=== PATIENT | female | born 1995 | race Two or more races ===

== ENCOUNTER → 2025-05-03 | Outpatient (CLI) | payer MEDICAID, SELFPAY ==
--- NOTE | 2025-05-03 | XR_ITS ---
Examination: Lumbar spine, 5 views Technique: Lumbar spine AP, lateral, coned lateral lower lumbar spine, bilateral obliques 5 views Exam date and time: May 03, 2025 1207 hours INDICATIONS: Low back pain one year. FINDINGS: Thoracolumbar levoscoliosis 10 degrees Mild osteopenia. Mild diffuse facet arthropathy. No lumbar fracture. Moderate disc narrowing L5-S1 No spondylolisthesis IMPRESSION: Moderate disc narrowing L5-S1
--- NOTE | 2025-05-03 | XR_ITS ---
Examination: Thoracic spine 3 views Technique one AP lateral coned lateral upper dorsal spine 3 views Date and time: May 03, 2025 1217 hours INDICATIONS: Upper back pain beginning one year ago. FINDINGS: Thoracic dextroscoliosis 8 degrees Mild osteopenia No thoracic fracture. Mild diffuse thoracic disc narrowing IMPRESSION: Mild diffuse thoracic degenerative disc disease
== END | disposition home or self-care (01) ==
PROVIDERS: PCP Family Medicine; Referring Provider Family Medicine; Visit Provider Family Medicine
DX: M51.34 Other intervertebral disc degeneration, thoracic region (principal); M48.07 Spinal stenosis, lumbosacral region
CPT/HCPCS: 72072; 72110